=== PATIENT | female | born 1950 | race Caucasian/White ===

== ENCOUNTER 2017-09-07 17:58 | Inpatient (IN) | payer OTHER ==
[~2017-09-07] VITALS: Ht 165.1 cm; Wt 84.0 kg
[~2017-09-07 17:58] MED LIST: ALIGN4 MG PO; ATENOLOL50 MG PO; EFFEXOR XR75 MG PO; MOTRIN600 MG PO; MSM PO; PERCOCET 7.51 TABLET PO; Percocet 5/325,Endoc PO; Prevacid PO; SIMVASTATIN20 MG PO; Tenormin PO; Zantac PO; [UNRECOGNIZED DRUG - OTHER] PO
[2017-09-07 19:24] LABS: HEMATOCRIT 41.8 % (36.0-46.0); MCH 30.5 PG (29.0-34.0); MCHC 33.7 G/DL (30.0-36.0); MCV 90.5 FL (83-99); MEAN PLAT.VOLUME 9.5 uM^3 (9.5-12.4); PLATELET COUNT 443 K/uL (156-360); RBC DIS.WIDTH-CV 12.8 % (11.8-14.6); RBC DIS.WIDTH-SD 42.6 % (39-53); RED BLOOD COUNT 4.62 M/uL (3.80-5.20); WHITE BLOOD COUNT 10.1 K/uL (4.1-10.2)
[2017-09-07 19:32] LABS: CHLORIDE 103 mEq/L (99-109); POTASSIUM 4.5 mEq/L (3.7-5.4); SODIUM 138 mEq/L (136-147)
[2017-09-07 19:34] LABS: GLUCOSE 102 mg/dL (70-99)
[2017-09-07 19:35] LABS: ANION GAP 13 MEQ/L (2-14)
[2017-09-07 19:37] LABS: GFR ESTIMATE (CALCULATED) > 59 mL/min/
[2017-09-07 19:38] LABS: UREA NITROGEN (BUN) 15 mg/dL (9-23)
[2017-09-07 20:23] LABS: INTER. NORMALIZED RATIO 1.1; PROTHROMBIN TIME 12.6 SEC (10.2-12.9)
[2017-09-07 20:26] LABS: PTT 29.1 SEC (25-37)
[2017-09-08 01:12] VITALS: BP 128/72
[2017-09-08 07:14] LABS: EOSINOPHIL (%) 4.3 % (0-5); EOSINOPHIL COUNT 0.4 K/uL (0-0.3); HEMATOCRIT 36.5 % (36.0-46.0); IMMATURE GRANULOCYTE (%) 0.4 % (0.0-0.7); INSTRUMENT ABS NEUTROPHIL CT 5.1 K/uL; LYMPHOCYTE COUNT 2.3 K/uL (1.0-2.8); MCH 30.6 PG (29.0-34.0); MCV 90.1 FL (83-99); MEAN PLAT.VOLUME 9.4 uM^3 (9.5-12.4); MONOCYTE (%) 13.1 % (3-12); MONOCYTE COUNT 1.2 K/uL (0-0.8); NEUTROPHIL (%) 56.9 % (45-76); NEUTROPHIL COUNT 5.1 K/uL (1.8-6.4); PLATELET COUNT 387 K/uL (156-360); RBC DIS.WIDTH-CV 12.9 % (11.8-14.6); RBC DIS.WIDTH-SD 43.1 % (39-53); RED BLOOD COUNT 4.05 M/uL (3.80-5.20); WHITE BLOOD COUNT 9.1 K/uL (4.1-10.2)
[2017-09-08 07:50] LABS: ALKALINE PHOSPHATASE 69 IU/L (3-129); ANION GAP 8 MEQ/L (2-14); CHLORIDE 103 MEQ/L (99-109); DIRECT BILIRUBIN 0.1 mg/dL (0.0-0.3); GFR ESTIMATE (CALCULATED) > 59 mL/min/; GLUCOSE 114 mg/dL (70-99); POTASSIUM 4.5 MEQ/L (3.7-5.4); SAMPLE HEMOLYSIS CHECK 0; SAMPLE ICTERIC CHECK 0; SAMPLE LIPEMIA CHECK 0; SODIUM 137 MEQ/L (136-147); TOTAL BILIRUBIN 0.4 MG/DL (0.0-1.0); UREA NITROGEN (BUN) 14 mg/dL (9-23)
[2017-09-08 09:15] VITALS: BP 136/72
[2017-09-08 09:16] LABS: INTERNAL CONTROL VALID? YES
[2017-09-08] MEDS ORDERED: PROTONIX40 MG PO (09:36)
[2017-09-08] MEDS ORDERED: ZYRTEC10 M3 PO (09:37)
[2017-09-08 15:53] LABS: C DIFF TOXIN NEGATIVE (NEGATIVE)
[2017-09-08 16:12] LABS: PROBE CHECK PASS; SPECIMEN PROCESSING CONTROL PASS
[2017-09-08 16:28] VITALS: BP 149/74
[2017-09-08 23:40] VITALS: BP 130/78
[2017-09-09 08:21] VITALS: BP 138/82
[2017-09-09 15:28] VITALS: BP 128/71
[2017-09-09 23:21] VITALS: BP 122/63
[2017-09-10 07:45] VITALS: BP 110/59
[2017-09-10] MEDS ORDERED: LEVAQUIN750 MG PO (10:19)
== END 2017-09-10 13:21 | disposition home or self-care (01) | DRG 195 ==
LOC: EME 17:58 → EDOF 22:40 → ENRESERV 22:40 → 3EAST 22:40 → ENRESERV 22:42 → 3EAST 09-08 00:05
PROVIDERS: Internal Medicine; Physician Assistant
DX: J18.9 Pneumonia, unspecified organism (principal); I10 Essential (primary) hypertension; K21.9 Gastro-esophageal reflux disease without esophagitis; Z86.718 Personal history of other venous thrombosis and embolism; G43.909 Migraine, unspecified, not intractable, without status migrainosus; E78.5 Hyperlipidemia, unspecified; E66.9 Obesity, unspecified; Z68.30 Body mass index [BMI] 30.0-30.9, adult
CPT/HCPCS: 71020; 71275; 80048; 80076; 83605; 85025; 85027; 85379; 85610; 85730; 87040; 87070; 87205; 87449; 87493; 87502; 99281; 99285; J0692; J1650; J1956; J7030